=== PATIENT | male | born 1930 | race Caucasian/White ===

== ENCOUNTER → 2017-02-08 | Day surgery (SDC) | payer MEDICARE, BC ==
[~2017-02-08] VITALS: Ht 182.4 cm; Wt 96.3 kg
[~2017-02-08] MED LIST: CENTRUM SILVER1 TAB PO; NORCO 5-325 TA1 EACH PO; PRILOSEC OTC20 MG PO
--- NOTE | ~2017-02-08 | OR ---
PATIENT'S NAME: LJ ALAS [facility] AGE: 86 Y [address] ROOM: [place] [id number] LOCATION: [facility] [place] ADMIT DATE: 02/08/2017 OR/Procedure Report DISCHARGE DATE: FAMILY PHYSICIAN: Delano Barragan MD ATTENDING PHYSICIAN: MANUEL RAMSEY SURGEON: Manuel Ramsey MD LIME MIXER TENDER: None. DATE OF PROCEDURE: 02/08/2017 PREOPERATIVE DIAGNOSIS: Right nasal ala basal cell carcinoma. POSTOPERATIVE DIAGNOSIS: Right nasal ala basal cell carcinoma. PROCEDURE: 1. Wide local excision of the right nasal ala basal cell carcinoma 1.5 x 1.5 cm. 2. Bilobed flap reconstruction 4.5 x 4.0 cm. 3. Right auricular cartilage harvest. ANESTHESIA: Local with MAC. COMPLICATIONS: None. SPECIMENS: Right nasal ala lesion. FINDINGS: Frozen section margins negative, deep and circumferential. INDICATION: The patient is a pleasant 86-year-old male with a biopsy-proven right nasal ala basal cell carcinoma. We discussed surgical resection and reconstruction and he provided informed consent. DESCRIPTION OF PROCEDURE: The patient was brought from the preoperative area to the operative suite, placed on table in supine position. All pressure points were padded. Time-out was performed correctly identifying the patient and the procedure. MAC anesthesia was initiated. There after local was infused 0.5% Marcaine with epinephrine in 1:1 fashion into the right ear as well as the proposed incision site from the right nasal ala and nasal sidewall. The nose was prepped and draped in the usual sterile fashion. 3 mm margins were marked around the nasal ala lesion and this was incised into the subcutaneous plane. This was kept at the level of the fiber fatty tissue and marked and sent off for frozen specimen which returned as negative on the margins. We then proceeded with right auricular cartilage harvest. Due to the proximity of the wound along the nasal ala rim. This was done by making a 2 cm incision on the posterior right auricle, elevating the perichondrium off the cartilage, incising the cartilage in elliptical fashion, harvesting a 2.5 PATIENT'S NAME: LJ ALAS [facility] AGE: 86 Y [address] ROOM: [place] [id number] LOCATION: [facility] [place] ADMIT DATE: 02/08/2017 OR/Procedure Report DISCHARGE DATE: FAMILY PHYSICIAN: Delano Barragan MD ATTENDING PHYSICIAN: MANUEL RAMSEY x 0.7 cm elliptical piece of cartilage from the conchal bowl. This was elevated without incising through the anterior skin. This was placed on the back table for further use. The wound was then closed with a running 5-0 fast gut suture and then through and through 4-0 plain gut suture to mattress the suture down. The bilobed flap was then designed and elevated. This was laterally based. The cartilage was inset along the alar rim and held in place with through and through 4-0 plain gut sutures. The bilobed flap was then inset appropriately with 4-0 Monocryl sutures deep and 5-0 running fast gut suture for skin. The patient tolerated this well. He was cleansed, ointment applied. He was returned to the PACU in stable condition. MD JUAN LUIS BUITRAGO/tamie /[id number] d: 02/08/17 1754 t: 02/15/17 1015, OPERATIVE SUMMARY
== END | disposition disaster alternative care site (69) ==
LOC: GPOC 02-06 10:00 → GSDC 07:00
PROC: 0HB1XZZ Excision of Face Skin, External Approach (ICD-10-PCS; principal; 2017-02-08)
DX: C44.311 Basal cell carcinoma of skin of nose (principal); K21.0 Gastro-esophageal reflux disease with esophagitis; M15.9 Polyosteoarthritis, unspecified; Z85.46 Personal history of malignant neoplasm of prostate; Z90.49 Acquired absence of other specified parts of digestive tract; Z79.899 Other long term (current) drug therapy
CPT/HCPCS: J2001; J7030